=== PATIENT | female | born 1970 | race Hispanic/Latino ===

== ENCOUNTER 2020-08-11 10:42 | Emergency (ER) | payer OTHER ==
--- NOTE | 2020-08-11 11:11 | Emergency Department Report ---
ED Female HPI - General Chief complaint: Urogenital-Female Stated complaint: VAGINAL PAIN Time Seen by Provider: 08/11/20 10:49 Source: patient Mode of arrival: Ambulatory Limitations: No Limitations - History of Present Illness Initial comments: Patient is a 49-year-old female presents emergency room with complaints of feeling vaginal pressure that began today. She states that she was feeling constipated and sat down on the toilet to have a bowel movement and states that she was straining and then she began to feel like something was coming out of the vagina and felt a lot of pressure. she states that she feels like her "vagina is falling out." She denies ever having this in the past. She states that she has had multiple vaginal deliveries. She denies any fever, nausea, vomiting, diarrhea, dysuria, vaginal discharge. Past medical history of hypothyroidism, hypertension, hyperlipidemia. No allergies to medications. She had a total hysterectomy. - Related Data Home Medications Medication Instructions Recorded Confirmed Last Taken FLUoxetine [Prozac] 20 mg PO QDAY 09/20/13 09/20/13 09/19/13 22:00 Allergies Allergy/AdvReac Type Severity Reaction Status Date / Time No Known Allergies Allergy Unverified 09/20/13 16:50 ED Review of Systems ROS: Stated complaint: VAGINAL PAIN Other details as noted in HPI Comment: All other systems reviewed and negative ED Past Medical Hx - Past Medical History Previous Medical History?: Yes Additional medical history: thyroid - Surgical History Hx Appendectomy: Yes Additional Surgical History: tonsilectomy - Social History Smoking Status: Current Every Day Smoker Substance Use Type: None - Medications Home Medications: Home Medications Medication Instructions Recorded Confirmed Last Taken Type FLUoxetine [Prozac] 20 mg PO QDAY 09/20/13 09/20/13 09/19/13 22:00 History ED Physical Exam - General Limitations: No Limitations General appearance: alert, in no apparent distress - Head Head exam: Present: atraumatic, normocephalic - Eye Eye exam: Present: normal appearance - ENT ENT exam: Present: mucous membranes moist - Respiratory Respiratory exam: Absent: respiratory distress, accessory muscle use - GI/Abdominal GI/Abdominal exam: Present: soft. Absent: distended, tenderness, guarding, rebound, rigid - Speculum exam: Present: other (trouble shooting mechanic:brittanie Rodrigues, there appears to be prolapse present in the vaginal canal, it does not exit the canal). Absent: erythema, vaginal discharge, cervical discharge, vaginal bleeding, laceration - Neurological Exam Neurological exam: Present: alert, oriented X3 - Psychiatric Psychiatric exam: Present: normal affect, normal mood - Skin Skin exam: Present: warm, dry, intact ED Course Vital Signs 08/11/20 08/11/20 10:45 11:15 Temperature 98.2 F Pulse Rate 107 H 92 H Respiratory 16 18 Rate Blood Pressure 120/75 122/78 [Left] O2 Sat by Pulse 96 97 Oximetry ED Medical Decision Making - Lab Data Vital Signs 08/11/20 08/11/20 10:45 11:15 Temperature 98.2 F Pulse Rate 107 H 92 H Respiratory 16 18 Rate Blood Pressure 120/75 122/78 [Left] O2 Sat by Pulse 96 97 Oximetry - Medical Decision Making Patient is a 49-year-old female presents emergency room with complaints of feeling vaginal pressure that began today. She states that she was feeling constipated and sat down on the toilet to have a bowel movement and states that she was straining and then she began to feel like something was coming out of the vagina and felt a lot of pressure. she states that she feels like her "vagina is falling out." She denies ever having this in the past. She states that she has had multiple vaginal deliveries. She denies any fever, nausea, vomiting, diarrhea, dysuria, vaginal discharge. Past medical history of hypothyroidism, hypertension, hyperlipidemia. No allergies to medications. She had a total hysterectomy. on exam: trouble shooting mechanic:brittanie Rodrigues, there appears to be prolapse present in the vaginal canal, it does not exit the canal. Examination appears most consistent with a rectocele, cystocele also a possibility. does not exit the vaginal canal. Patient will be referred to [facility] for further management. Advised patient Please take stool softeners [id number]. Please increase your water and fiber intake. please avoid straining. Please do pelvic floor strengthening exercises. Please follow-up with a [facility]. Return to emergency room for any worsening symptoms. Critical care attestation.: If time is entered above; I have spent that time in minutes in the direct care of this critically ill patient, excluding procedure time. ED Disposition Clinical Impression: Pelvic prolapse Qualifiers: Prolapse type: unspecified female genital prolapse Qualified Code(s): N81.9 - Female genital prolapse, unspecified Disposition: DC-01 TO HOME OR SELFCARE Is pt being admited?: No Does the pt Need Aspirin: No Condition: Stable Instructions: Pelvic Floor Dysfunction, Pelvic Organ Prolapse Additional Instructions: Please take stool softeners [id number]. Please increase your water and fiber intake. please avoid straining. Please do pelvic floor strengthening exercises. Please follow-up with a [facility] MANAGEMENT [facility]OC[facility]. Return to emergency room for any worsening symptoms. Referrals: PRIMARY CARE, [Primary Care Provider] - 2-3 Days [facility] [Provider Group] - 2-3 Days [facility] [Provider Group] - 2-3 Days [facility] [Provider Group] - 2-3 Days Time of Disposition: 11:12 Print Language: NIUEAN
[2020-08-11 12:19] VITALS: BP 122/78
== END 2020-08-11 11:23 | disposition home or self-care (01) ==
LOC: ED 10:42
DX: N81.9 Female genital prolapse, unspecified (principal); F17.200 Nicotine dependence, unspecified, uncomplicated; Z79.899 Other long term (current) drug therapy; Z98.890 Other specified postprocedural states
CPT/HCPCS: 99282; 99283